=== PATIENT | female | born 1980 | race Caucasian/White ===

== ENCOUNTER → 2019-08-26 | Outpatient (REF) | payer OTHER ==
[2019-09-01 10:07] LABS: HPV HYBRID CAPTURE II Negative (Negative)
== END ==
LOC: M LAB LCGH 10:55
PROVIDERS: ATTEND Physician Assistant
DX: Z12.4 Encounter for screening for malignant neoplasm of cervix (principal)
CPT/HCPCS: 87624; G0123

== ENCOUNTER → 2021-07-18 | Outpatient (CLI) | payer OTHER ==
[~2021-07-18] MED LIST: METHACHOLINE KIT (J7674) INH ONE
--- NOTE | 2021-07-18 10:39 | PFTRPT ---
Site: [facility], [address] [place] [address], [id number] ID: [id number] Name: TYREL JESSICA Visit Date: 07/18/2021 Second ID: [id number] Referring Doctor: FARTUN DING Reviewing Doctor: Anil Sánchez MD Lead Ios Developer: Socorro Freeman RRT Age: 40 : 1980 Sex: Female Race: Height: 68.00 Inches Weight: 187.00 Lbs BSA: 1.99 Order IDs: [id number] Requested Test(s): <RESP-PFT.PFT B/A> Diagnosis: R05 test meet the ATS standards for acceptability and repeatability. Review Status: Not Reviewed Pre-Bronch Post-Bronch Pred Actual %Pred Actual %Chng SPIROMETRY FVC (L) 4.17 4.18 100 FEV1 (L) 3.36 3.38 100 FEV1/FVC (%) 82 81 98 FEF 25% (L/sec) 5.82 6.59 113 FEF 50% (L/sec) 4.13 3.95 95 FEF 75% (L/sec) 1.61 1.37 85 FEF 25-75% (L/sec) 3.27 3.21 98 FEF Max (L/sec) 7.56 7.07 93 FIVC (L) 3.53 FIF 50% (L/sec) 4.06 2.69 66 FIF Max (L/sec) 2.89 MVV (L/min) 110 83 75 Expiratory Time (sec) 6.57 Back Extrap Vol (L) 0.12 Time To FEFmax (sec) 0.099 LUNG VOLUMES SVC (L) 3.81 4.26 111 IC (L) 2.48 2.56 103 ERV (L) 1.33 1.70 128 TGV (L) 3.17 3.91 123 RV (Pleth) (L) 1.84 2.21 120 TLC (Pleth) (L) 5.65 6.47 114 RV/TLC (Pleth) (%) 32 34 106 DIFFUSION DLCOunc (ml/min/mmHg) 25.18 27.43 108 DLCOcor (ml/min/mmHg) 25.18 28.54 113 DL/VA (ml/min/mmHg/L) 4.46 4.60 103 VA (L) 5.65 6.20 109 BHT (sec) 10.62 IVC (L) 3.96 TLC (SB) (L) 6.35 AIRWAYS RESISTANCE Raw (cmH2O/L/s) 1.86 0.91 49 Gaw (L/s/cmH2O) 1.03 1.17 113 sRaw (cmH2O*s) 4.76 3.64 76 sGaw (1/cmH2O*s) 0.20 0.29 145 BLOOD GASES Hgb (gm/dL) 12.2
== END ==
LOC: M CARPUL 09:55
PROVIDERS: ATTEND Nurse Practitioner Family
DX: R05 Cough (principal)